=== PATIENT | female | born 1995 | race Caucasian/White ===

== ENCOUNTER 2018-11-08 02:30 | Emergency (ER) | payer MEDICAID, OTHER ==
[~2018-11-08] VITALS: Ht 162.6 cm; Wt 69.1 kg
[2018-11-08 02:38] VITALS: Ht 162.6 cm; Wt 69.1 kg
[2018-11-08] MEDS ORDERED: MULTIVITAMINS 10 ML, THIAMINE 100 MG, FOLIC ACID 1 MG, MAGNESIUM SULFATE 2 GM in SOD CH... IV ONE (03:30)
[2018-11-08] MEDS ORDERED: LORAZEPAM 2 MG INJ IV ONE (03:30)
[2018-11-08] MEDS ORDERED: SOD CHLORIDE 0.9% 1,000 ML IV ONE (03:30)
[2018-11-08 03:45] VITALS: BP 141/96; PULSE 126; RESP 18
[2018-11-08] MEDS ORDERED: CHLO25CA9 PO (03:49)
--- NOTE | 2018-11-08 03:55 | ERD ---
ER Documentation Chief Complaint Chief Complaint PANIC ATTACK STARTED NOW; COUGH X2DAYS; CHRONIC BACK PAIN HPI 23-year-old female who presents to the emergency room with tremor. Initially she was taken to ER 2 during which time she was extremely anxious and had a tremor. The patient had a witnessed generalized tonic-clonic seizure lasting 1 minute with spontaneous resolution. She was brought to the ER 1 section where I saw the patient. She had a brief postictal state and has since returned to her baseline. It appears the patient has been having some family issues recently and has been drinking on a daily basis. Last intake was yesterday. The patient does have tremors when she stops drinking. She has never had a seizure before. She denies any headache chest pain or shortness of breath. Recent URI type symptoms that have been improving. ROS All systems reviewed and are negative except as per history of present illness. Medications Home Meds Active Scripts Chlordiazepoxide* (Chlordiazepoxide*) 25 Mg Capsule, 25 MG PO As directed for 6 Days, CAP 50mg PO BID x 2 days 25mg PO BID x 2 days 25mg Daily x 2 days Then stop Prov:MARYANA MCMILLAN MD 11/08/18 Allergies Allergies: Coded Allergies: No Known Allergy (Unverified , 11/08/18) PMhx/Soc Medical and Surgical Hx: pt denies Surgical Hx Hx Psychiatric Problems: Yes (anxiety, depression) Hx Alcohol Use: Yes (6 glasses of vodka today per pt) Hx Substance Use: Yes (marijuana) Hx Tobacco Use: Yes Smoking Status: Current some day smoker FmHx Family History: No diabetes Physical Exam Vitals Vital Signs Date Temp Pulse Resp B/P (MAP) Pulse Ox O2 O2 Flow FiO2 Time Delivery Rate 11/08/18 99.2 105 22 118/67 97 02:38 (84) Physical Exam General: Tremulousness, dry mucous membranes Head: Normocephalic, atraumatic. Eyes: EOM intact ENT: Dry mucous membranes Neck: Full ROM Respiratory: No respiratory distress Cardiovascular: Well perfused distally Abdominal: Nondistended : Deferred MSK: No edema, no unilateral swelling, 5/5 strength Neurologic: Alert and oriented, moving all extremities, normal speech, steady gait, tremor Skin: No rash Psych: Normal mood, denies SI or HI Results 24 hrs Current Medications Medications Dose Sig/Anthony Start Time Status Last (Trade) Ordered Route PRN Stop Time Admin Dose Reason Admin Sodium 1,000 ml @ Q1H ONCE 11/08/18 DC Chloride 1,000 mls/hr IV 03:30 11/08/18 03:46 1,000 ml @ Q2H ONCE 11/08/18 DC Multivitamins 500 mls/hr IV 03:30 10 11/08/18 03:46 ml/Thiamine HCl 100 mg/Folic Acid 1 mg/Magnesium Sulfate 2 gm/ Sodium Chloride Lorazepam 2 mg ONCE ONCE 11/08/18 DC (Ativan) IV 03:30 11/08/18 03:46 Lorazepam 1 mg ONCE ONCE 11/08/18 (Ativan) IM 04:00 11/08/18 04:01 50 mg ONCE ONCE 11/08/18 Chlordiazepox PO 04:00 rajiv 11/08/18 04:01 (Librium) 1,014.2 ml Q2H2M ONCE 11/08/18 Multivitamins @ 500 mls/ IV 04:00 10 ml/Folic hr 11/08/18 06:01 Acid 1 mg/Magnesium Sulfate 2 gm/ Sodium Chloride Thiamine 100 mg ONCE ONCE 11/08/18 HCl PO 04:00 (Vitamin B1) 11/08/18 04:01 Folic Acid 1 mg ONCE ONCE 11/08/18 (Folic Acid) PO 04:00 11/08/18 04:01 Procedures/MDM The patient presents with signs and symptoms consistent with alcohol withdrawal with likely alcohol withdrawal seizure. The patient was immediately brought to a ER 1 treatment space where I saw her. The patient does have a tremor. She admits to drinking daily. The patient otherwise has no complaints. She exhibits no signs or symptoms concerning for intracranial hemorrhage, meningitis or other infectious process. The patient is adamant about not receiving care in the emergency room setting. She states that she would like to go home. We had a prolonged conversation with nurse at the bedside discussing her disease process, seriousness of alcohol withdrawal leading to seizures and risk for delirium tremens and possibly even . The patient was advised that she would benefit from laboratory testing and CT imaging of the brain as well as IV fluids, IV benzodiazepines and treatment for alcohol withdrawal. Patient is able to verbalize back to me the risks involved with refusing treatment. She is not suicidal, is not a danger to herself or others. She has a safe place with which to return. She has capacity. The patient has decided to leave AGAINST MEDICAL ADVICE. A conversation was had discussing the risk benefits and alternatives including inpatient and outpatient management. The patient understands my recommendation for admission. The risks of leaving including significant morbidity and were discussed and understood. The patient has capacity. Document will be signed and placed in the chart Patient left AGAINST MEDICAL ADVICE The patient has agreed to IM Ativan, p.o. Librium. P.o. thiamine and folic acid have been provided. Accu-Chek after seizure was normal. Seizure precautions were initiated. The patient does not have an identifiable emergent medical condition that war rants inpatient hospitalization at this time. The patient is deemed safe for discharge with outpatient follow-up. We discussed follow up with the patient's primary care doctor within 24 to 48 hours as needed. We also discussed return to the emergency room for worsening symptoms or worsening condition. Outpatient referral: PMD Discharge Medications: Librium Departure Diagnosis: Primary Impression: Alcohol withdrawal Complication of substance-induced condition: with unspecified complication Qualified Codes: F10.239 - Alcohol dependence with withdrawal, unspecified Additional Impression: Seizure Condition: Stable Patient Instructions: Alcohol Withdrawal Referrals: [facility] YOU HAVE RECEIVED A MEDICAL SCREENING EXAM AND THE RESULTS INDICATE THAT YOU DO NOT HAVE A CONDITION THAT REQUIRES URGENT TREATMENT IN THE EMERGENCY DEPARTMENT. FURTHER EVALUATION AND TREATMENT OF YOUR CONDITION CAN WAIT UNTIL YOU ARE SEEN IN YOUR DOCTORS OFFICE WITHIN THE NEXT 1-2 DAYS. IT IS YOUR RESPONSIBILITY TO MAKE AN APPOINTMENT FOR FOLOW-UP CARE. IF YOU HAVE A PRIMARY DOCTOR --you should call your primary doctor and schedule an appointment IF YOU DO NOT HAVE A PRIMARY DOCTOR YOU CAN CALL OUR PHYSICIAN REFERRAL HOTLINE AT IF YOU CAN NOT AFFORD TO SEE A PHYSICIAN YOU CAN CHOSE FROM THE FOLLOWING [facility] [address] [facility]. [facility] [address] [facility] [address] [facility]. [facility] [address] [facility]. [facility] [address] [facility]. [facility]. [address] [facility]. [facility] YOU HAVE RECEIVED A MEDICAL SCREENING EXAM AND THE RESULTS INDICATE THAT YOU DO NOT HAVE A CONDITION THAT REQUIRES URGENT TREATMENT IN THE EMERGENCY DEPARTMENT. FURTHER EVALUATION AND TREATMENT OF YOUR CONDITION CAN WAIT UNTIL YOU ARE SEEN IN YOUR DOCTORS OFFICE WITHIN THE NEXT 1-2 DAYS. IT IS YOUR RESPONSIBILITY TO MAKE AN APPOINTMENT FOR FOLOW-UP CARE. IF YOU HAVE A PRIMARY DOCTOR --you should call your primary doctor and schedule and appointment IF YOU DO NOT HAVE A PRIMARY DOCTOR YOU CAN CALL OUR PHYSICIAN REFERRAL HOTLINE AT . IF YOU CAN NOT AFFORD TO SEE A PHYSICIAN YOU CAN CHOSE FROM THE FOLLOWING [facility], [facility] INSTITUTIONS: [facility] [address] [place] [address] [facility] [address] [place] [address] [facility] [address] [place] [address] Additional Instructions: Call your primary care doctor TOMORROW for an appointment during the next 1 WEEK.Tell the sales secretary that you were referred from this facility.See the doctor sooner or return here if your condition worsens before your appointment time. MARYANA MCMILLAN MD Nov 08, 2018 03:55
[2018-11-08] MEDS ORDERED: LORAZEPAM 2 MG INJ IM ONE (04:00)
[2018-11-08] MEDS ORDERED: THIAMINE 100 MG TAB PO ONE (04:00)
[2018-11-08] MEDS ORDERED: CHLORDIAZEPOXIDE 25 MG CAP PO ONE (04:00)
[2018-11-08] MEDS ORDERED: MULTIVITAMINS 10 ML, FOLIC ACID 1 MG, MAGNESIUM SULFATE 2 GM in SOD CHLORIDE 0.9% 1,000 ML IV ONE (04:00)
[2018-11-08] MEDS ORDERED: FOLIC ACID 1 MG TAB PO ONE (04:00)
== END 2018-11-08 05:06 | disposition left against medical advice (07) ==
LOC: E/R 02:30
DX: F10.239 Alcohol dependence with withdrawal, unspecified (principal); G40.909 Epilepsy, unspecified, not intractable, without status epilepticus; F17.210 Nicotine dependence, cigarettes, uncomplicated
CPT/HCPCS: 82962; 96372; J2060; J3411; J3475; J7030; Z7502; Z7610